=== PATIENT | male | born 1995 | race Caucasian/White ===

== ENCOUNTER 2016-07-12 23:00 | Emergency (ER) | payer OTHER ==
[~2016-07-12] VITALS: Ht 177.8 cm; Wt 81.8 kg
[~2016-07-12 23:00] MED LIST: FLUO40CA PO; LISD40CA PO
[2016-07-12 23:06] VITALS: BP 137/88; PULSE 109; RESP 18; O2SAT 96
[2016-07-12] MEDS ORDERED: RISP1TAB3 PO (23:43)
[2016-07-12] MEDS ORDERED: FLUO20CA25 PO (23:43)
[2016-07-12] MEDS ORDERED: BUPR150T12 PO (23:43)
[2016-07-12] MEDS ORDERED: LISD70CA2 PO (23:43)
--- NOTE | 2016-07-12 23:48 | ED.REPORT ---
HPI-Abd Pain F 2 and Over Date of Service Jul 12, 2016 ED Provider: Parveen Yates MD Nursing Notes Stated Complaint: PSYCHIATRIC Chief Complaint: Psychiatric Complaint Nursing Notes Reviewed: Yes Allergies: Coded Allergies: Sulfa (Sulfonamide Antibiotics) (Verified Allergy, Unknown, 07/12/16) amoxicillin (Verified Allergy, Unknown, 07/12/16) clavulanic acid (Verified Allergy, Unknown, 07/12/16) peanut (Verified Allergy, Unknown, 07/12/16) shellfish derived (Verified Allergy, Unknown, 02/25/15) Uncoded Allergies: TREE NUTS (Allergy, Unknown, 02/25/15) Scheduled Bupropion ER (Bupropion ER) 150 Mg Tablet.er 150 MG PO BID Fluoxetine (Fluoxetine) 40 Mg Capsule 40 MG PO DAILY Fluoxetine (Fluoxetine) 20 Mg Capsule 80 MG PO DAILY Lisdexamfetamine Dimesylate (Vyvanse) 40 Mg Capsule 40 MG PO DAILY Lisdexamfetamine Dimesylate (Vyvanse) 70 Mg Capsule 70 MG PO DAILY Risperidone (Risperidone) 1 Mg Tablet 1 MG PO BID General Time Seen by MD: 23:15 Past Medical History Smoking History Unknown if Ever Smoker Physical Exam Initial Vital Signs Vital Signs (First) Date Time Temp Pulse Resp B/P Pulse Ox O2 Delivery O2 Flow Rate FiO2 07/12/16 23:06 36.5 109 18 137/88 96 Room Air Interpretation & Diagnostics Lab Results Interpretation Test 07/12/16 23:45 Discharge & Departure Referrals: Ramya Scott MD (PCP) Scribe Attestation Portions of this note were transcribed by Huyen Cuadra. I, Dr. Yates, personally performed the history, physical exam and medical decision-making; I reviewed and confirmed the accuracy of the information in the transcribed note. Signed by: Kera Barker, 07/12/2016 2200 Ramya Scott MD, Howard L MD Jul 12, 2016 23:48 Huyen Cuadra Jul 12, 2016 23:56 Parveen Yates MD Jul 12, 2016 23:48 Huyen Cuadra Jul 12, 2016 23:56
--- NOTE | 2016-07-12 23:56 | ED.REPORT ---
HPI-Psychiatric Illness Date of Service Jul 12, 2016 ED Provider: Parveen Yates MD Patient is a 21 year old male with a history of psychiatric disorder on Risperidone, depression and ADHD on Vyvanse who is brought to the ED by his mother after he developed command hallucinations telling him to commit suicide over the past few months, worse for the past few days. While his mother was driving him to the ED, the patient tried to open the car door and jump out of the car. The patient admits that he is still suicidal on arrival to the ED. He states that the voices are "unbearable", telling him that he is "worthless and should ". He admits to "wanting to stab my heart" yesterday and states that he tried to hang himself 2 months ago. His mother was not aware of the patient previously trying to commit suicide. The patient admits to taking all of his psychiatric medications as prescribed. He denies alcohol or illicit drug use. Nursing Notes Stated Complaint: PSYCHIATRIC Chief Complaint: Psychiatric Complaint Nursing Notes Reviewed: Yes Allergies: Coded Allergies: Sulfa (Sulfonamide Antibiotics) (Verified Allergy, Unknown, 07/12/16) amoxicillin (Verified Allergy, Unknown, 07/12/16) clavulanic acid (Verified Allergy, Unknown, 07/12/16) peanut (Verified Allergy, Unknown, 07/12/16) shellfish derived (Verified Allergy, Unknown, 02/25/15) Uncoded Allergies: TREE NUTS (Allergy, Unknown, 02/25/15) Scheduled Bupropion ER (Bupropion ER) 150 Mg Tablet.er 150 MG PO BID Fluoxetine (Fluoxetine) 40 Mg Capsule 40 MG PO DAILY Fluoxetine (Fluoxetine) 20 Mg Capsule 80 MG PO DAILY Lisdexamfetamine Dimesylate (Vyvanse) 40 Mg Capsule 40 MG PO DAILY Lisdexamfetamine Dimesylate (Vyvanse) 70 Mg Capsule 70 MG PO DAILY Risperidone (Risperidone) 1 Mg Tablet 2 MG PO HS General Time Seen by MD: 23:15 Chief Complaint Depressed, Suicidal ideation Hx Obtained From: Patient Risk-Psychiatric Illness Suicide Risk Stratification RF Statements: Risk factors reviewed Past Medical History Past Medical History Psychiatric disorder on Risperidone Depression ADHD Past Surgical History Reports: Tonsillectomy Smoking History Unknown if Ever Smoker Social History Other Social History: Good social support, Local resident Ambulatory Status Independent Review of Systems Constitutional: Denies: Chills, Fever Psychiatric: Reports: Depression, Hallucinations, auditory, Suicidal ideation Complete sys rev & neg: except as marked. Physical Exam Initial Vital Signs Vital Signs (First) Date Time Temp Pulse Resp B/P Pulse Ox O2 Delivery O2 Flow Rate FiO2 07/12/16 23:06 36.5 109 18 137/88 96 Room Air Initial VS: Reviewed, Vital signs abnormal Head / Eyes: Atraumatic, Normocephalic, PERRL ENT: Conjunctiva normal, No scleral icterus Neck: Supple, Full range of motion Abdomen / GI: Soft, Non-tender Extremities: Vascular intact, Neuro intact Skin: Warm, Dry, No cyanosis General/Constitutional: Awake, Alert, Well hydrated Neurologic: Oriented X3, Speech NL, No motor deficits, No sensory deficits Psychiatric: Affect NL Abnormal Mood/Affect: Positive: Depressed, Negative: Flat affect (appears animated while speaking) Abnormal Thinking / Perception: Positive: Suicidal, no plan does not appear to be responding to hallucinations, but states that he is hearing negative voices Respiratory / Chest: Breath sounds NL, Breath sounds = bilat, No respiratory distress, No rales, No rhonchi, No wheezing Cardiovascular: Regular rhythm, Heart sounds NL, No murmurs Heart Rate / Rhythm: Positive: Tachycardia (mild) Interpretation & Diagnostics Interpretation & Diagnostics: Urine Drug Screen: Positive for TCAs and Amphetamines (on Vyvanse). All else negative. Breathalyzer: 0.00 Lab Results Interpretation Result Diagram: 07/13/16 0013 07/13/16 0013 Test 07/12/16 23:45 07/13/16 00:13 Hold Urine Received (Received) White Blood Count 8.5th/mm3 (3.8-10.1) Red Blood Count 4.92mil/mm3 (4.40-5.80) Hemoglobin 14.5g/dL (13.8-17.2) Hematocrit 42.0% (41.0-50.0) Mean Corpuscular Volume 85.4fL (81-100) Mean Corpuscular Hemoglobin 29.5pg (27.0-35.0) Mean Corpuscular Hemoglobin Concent 34.5% (32.0-37.0) Red Cell Distribution Width 12.4% (12.3-15.4) Platelet Count 250bil/L (150-400) Neutrophils (%) (Auto) 58.9% (40-74) Lymphocytes (%) (Auto) 21.9% (14-46) Monocytes (%) (Auto) 10.6% (4-12) Eosinophils (%) (Auto) 8.2% (0-5) Basophils (%) (Auto) 0.2% (0-3) Sodium Level 139mEq/L (134-144) Potassium Level 3.8mEq/L (3.5-5.2) Chloride Level 101mEq/L (97-108) Carbon Dioxide Level 26mmol/L (18-29) Blood Urea Nitrogen 15mg/dL (6-20) Creatinine 0.72mg/dL (0.76-1.27) Estimat Glomerular Filtration Rate 145mL/min (>59) Glucose Level 92mg/dL (60-99) Calcium Level 9.3mg/dL (8.5-10.1) Total Bilirubin 0.3mg/dL (0.0-1.2) Aspartate Amino Transf (AST/SGOT) 13U/L (0-50) Alanine Aminotransferase (ALT/SGPT) 15U/L (0-44) Alkaline Phosphatase 47U/L (25-150) Total Protein 7.4g/dL (6.4-8.4) Albumin 4.8g/dL (3.4-5.0) Thyroid Stimulating Hormone (TSH) 3.350uIU/mL (0.450-4.500) Hold Dumont Top Tube Received (Received) Lab values outside NL range: no clinical significance. Re-Eval/Medical Decision Med Decision/Clinical Course 21-year-old male who has had escalating voices and suicidal ideation reflecting a way to escape these voices. He is on, among other things risperidone 2 mg twice a day and states that he has been taking his medicines. He has been doing his outpatient follow-up. There is some disagreement between the patient and his mother about historical facts. He apparently talked about various methods of suicide and the last couple of weeks. Tonight he tried to jump out of the car while they were enroute here. Because of this behavior and ongoing expression of suicidal ideation and ongoing voices, DCR evaluation was requested and done. The DCR did not feel that he met EMILY criteria. We will increase his risperidone 2 mg in morning, add a 1 mg dose around 2 PM where he states his symptoms are the worst and 2 mg at bedtime. He is being discharged home with his mother who is in agreement with the plan. He has an appointment scheduled in 2 days with [facility]. Source of Hx: Old records Re-Evaluation/Progress : Time of Eval: 03:33 Patient Status: Condition improved Re-Evaluation/Progress Note: Patient and his mother understand and agree with the plan to be discharged home. His risperidone dose will be increased in the afternoon. Discharge instructions and follow-up discussed. All questions were addressed. Return to the ED warnings given. Consultation #1: Call Returned at: 01:05 Note: Spoke with the [facility] about the patient's case. They believe that the patient is voluntary and states that they do not want dispatch a DCR. Discussed this with extensively with the [facility], but they state that the patient will need to be evaluated by the [employer] TECHNICIAN in the morning. Consultation #2: Call Returned at: 03:22 Note: Spoke with the DCR, who has evaluated the patient. Patient stated that he did not have a rope to hang himself and he did not put the rope around his neck. He also stated that he did not try to jump out of the car, but his mother is insistent that he did. She reports having to hold the door closed so that he would not jump. DCR has set the patient up with an urgent follow-up with [facility]. DCR reports that the patient's auditory hallucinations mostly happen in the afternoon, which is when his risperidone dose wears off. DCR asks for the patient's risperidone to be increased to a dose at 2pm in the afternoon. Counseled Regarding: Diagnosis, Lab results, Need for follow-up, When/why to return to ED Discharge & Departure Impression: Primary Impression: Suicidal ideations Additional Impression: Auditory hallucinations )( Condition at Discharge: No danger to self, No danger to others, No suicidal ideation, No homicidal ideation Disposition: Home Discharge Condition All VS Reviewed: Yes Condition: Stable Patient Instructions: Suicide Prevention Through Young Adulthood (ED) Additional Instructions: Recommend that you increase your risperidone to 2 mg in morning, 1 mg at around 2 PM and 2 mg in the evening. Keep your appointment as scheduled with [facility] provider on Pam. Return to the emergency room or call the crisis line if things worsen over the weekend. Referrals: Ramya Scott MD (PCP) Scribe Attestation Portions of this note were transcribed by Huyen Cuadra. I, Dr. Yates, personally performed the history, physical exam and medical decision-making; I reviewed and confirmed the accuracy of the information in the transcribed note. Signed by: Kera Barker, 07/13/2016 0336 copies to: Ramya Scott MD, Howard L MD Jul 12, 2016 23:56 Huyen Cuadra Jul 13, 2016 00:40
[2016-07-13 00:28] LABS: BASOPHILS % (AUTO) 0.2 % (0-3); EOSINOPHILS % (AUTO) 8.2 % (0-5); MONOCYTES % (AUTO) 10.6 % (4-12); Mean Corpuscular Hemoglobin 29.5 pg (27.0-35.0); Mean Corpuscular Volume 85.4 fL (81-100); NEUTROPHILS % (AUTO) 58.9 % (40-74); Platelet Count 250 bil/L (150-400)
[2016-07-13] MEDS ORDERED: risperiDONE 1 mg Tablet PO ONE ×2 (01:00→01:25)
[2016-07-13 03:48] VITALS: BP 128/72; PULSE 99; RESP 16; O2SAT 98
== END 2016-07-13 03:51 | disposition home or self-care (01) ==
LOC: SED 23:00
DX: R45.851 Suicidal ideations (principal); R44.0 Auditory hallucinations; F90.9 Attention-deficit hyperactivity disorder, unspecified type; Z88.2 Allergy status to sulfonamides; Z88.1 Allergy status to other antibiotic agents; Z88.8 Allergy status to other drugs, medicaments and biological substances; Z91.013 Allergy to seafood; Z79.899 Other long term (current) drug therapy

== ENCOUNTER 2016-11-01 18:44 | Emergency (ER) | payer OTHER ==
[~2016-11-01] VITALS: Ht 177.8 cm; Wt 88.6 kg
[~2016-11-01 18:44] MED LIST changes: +BUPR150T12 PO; +FLUO20CA25 PO; +LISD70CA2 PO; +RISP1TAB3 PO
[2016-11-01 18:49] VITALS: BP 141/90; PULSE 111; RESP 1; O2SAT 98
--- NOTE | 2016-11-01 20:44 | ED.REPORT ---
HPI-Psychiatric Illness Date of Service November 01, 2016 ED Provider: Doc,Ed MD The patient is a 21 year old male with history of depression, ADHD, and schizophrenia, who was brought to the emergency department by his mother for increased visual hallucinations that began this afternoon. The patient is unable to describe his symptoms. He is feeling better at this time. He denies suicidal or homicidal ideation. He denies any physical complaints. His mother is requesting to have some kind of anxiety medication to use as needed for when his symptoms become more severe. Nursing Notes Stated Complaint: MENTAL HEALTH Chief Complaint: Psychiatric Complaint Nursing Notes Reviewed: Yes Allergies: Coded Allergies: Sulfa (Sulfonamide Antibiotics) (Verified Allergy, Unknown, 11/01/16) amoxicillin (Verified Allergy, Unknown, 11/01/16) clavulanic acid (Verified Allergy, Unknown, 11/01/16) peanut (Verified Allergy, Unknown, 11/01/16) shellfish derived (Verified Allergy, Unknown, 11/01/16) Uncoded Allergies: TREE NUTS (Allergy, Unknown, 02/25/15) Scheduled Bupropion ER (Bupropion ER) 150 Mg Tablet.er 150 MG PO BID Fluoxetine (Fluoxetine) 40 Mg Capsule 40 MG PO DAILY Fluoxetine (Fluoxetine) 20 Mg Capsule 80 MG PO DAILY Lisdexamfetamine Dimesylate (Vyvanse) 40 Mg Capsule 40 MG PO DAILY Lisdexamfetamine Dimesylate (Vyvanse) 70 Mg Capsule 70 MG PO DAILY Risperidone (Risperidone) 1 Mg Tablet 2 MG PO HS Scheduled PRN hydrOXYzine Hcl (HydrOXYzine Hcl) 25 Mg Tablet 25 MG PO TID PRN PRN For Anxiety General Time Seen by MD: 20:43 Chief Complaint Hallucinations, auditory Hx Obtained From: Patient, Other family... Arrived By: Walk-in Onset Occurred: 5 - 8 hours ago Symptom Duration: 1 - 4 hours Progression Since Onset: Gradually improving Severity: Current: No pain currently Severity: Maximum: No pain Recent Healthcare: No recent hospitalization Similar Sx Previous: Yes Risk-Psychiatric Illness Suicide Risk Stratification RF Statements: Risk factors reviewed Past Medical History Past Medical History Schizophrenia Depression ADHD Past Surgical History Reports: Tonsillectomy Family History Noncontributory Smoking History Unknown if Ever Smoker Social History Other Social History: Good social support, Lives with parents, Local resident Ambulatory Status Independent Review of Systems Constitutional: Denies: Chills, Fever Respiratory: Denies: Non-productive cough, Shortness of breath Cardiovascular: Denies: Chest pain GI: Denies: Abdominal pain, Diarrhea, Nausea, Vomiting Skin: Denies Rash Neurologic: Denies: Headache Psychiatric: Reports: Change mental status, Hallucinations, auditory, Unable to control self, Denies: Homicidal ideation, Suicidal ideation Complete sys rev & neg: except as marked. Physical Exam Initial Vital Signs Vital Signs (First) Date Time Temp Pulse Resp B/P Pulse Ox O2 Delivery O2 Flow Rate FiO2 11/01/16 18:49 36.6 111 1 141/90 98 Room Air Initial VS: Reviewed, Vital signs abnormal Head / Eyes: Atraumatic, Normocephalic, PERRL ENT: Mucous membranes moist, Conjunctiva normal, No scleral icterus Neck: Supple, Non-tender, Full range of motion Respiratory: Breath sounds normal, Clear to auscultation, No respiratory distress Cardiovascular: Regular rate & rhythm, Heart sounds normal, Intact distal pulses Abdomen / GI: Soft, Non-tender, No guarding, No rebound, No distention Lymphatic: No lymphadenopathy Extremities: Vascular intact, Neuro intact, No swelling, No tenderness Skin: Warm, Dry, No cyanosis General/Constitutional: Awake, Alert, Well appearing Neurologic: Oriented X3, Speech NL, No motor deficits, No sensory deficits Psychiatric: Affect NL, Mood NL, Not suicidal, Not homicidal, Cognitive function NL, Judgment/insight NL, Thought content NL Poor eye contact Interpretation & Diagnostics Lab Results Interpretation Test 11/01/16 21:35 Hold Urine Received (Received) Re-Eval/Medical Decision Med Decision/Clinical Course The patient presents as part of his care plan he is feeling overwhelmed. He was never suicidal or homicidal, although he says he wants to hurt his father over his father's to far away for it to be realistic and the patient is unable to drive. His symptoms are more consistent with anxiety and he wished to have some as needed medication. Source of Hx: Old records, Family Re-Evaluation/Progress : Time of Eval: 20:55 Re-Evaluation/Progress Note: Discussed plan for discharge. All questions were addressed. Counseled Regarding: Diagnosis, Need for follow-up, When/why to return to ED Discharge & Departure Impression: Primary Impression: Anxiety )( Condition at Discharge: No danger to self, No danger to others, No suicidal ideation, No homicidal ideation Disposition: Home Discharge Condition All VS Reviewed: Yes Condition: Stable Additional Instructions: Thank you for entrusting us with your care today. I am glad you are feeling better. Continue to take your normal medication as prescribed. Use the hydroxyzine as needed for worsening anxiety. Followup with your regular doctor next week for re-evaluation. Seek care for any new or concerning symptoms. Referrals: Ramya Scott MD (PCP) Scribe Attestation Portions of this note were transcribed by Florina Thapa. I, Dr. Schwartz personally performed the history, physical exam and medical decision-making; I reviewed and confirmed the accuracy of the information in the transcribed note. Signed by: Kera Painting, 11/01/2016 at 2115. copies to: Ramya Scott MD, Jena M MD November 01, 2016 20:44 Florina Thapa November 01, 2016 20:57
[2016-11-01] MEDS ORDERED: HYDR-656 PO (20:59)
[2016-11-01 21:19] VITALS: BP 129/82; PULSE 103; RESP 18; O2SAT 97
== END 2016-11-01 21:18 | disposition home or self-care (01) ==
LOC: SED 18:44
DX: F41.9 Anxiety disorder, unspecified (principal); F20.9 Schizophrenia, unspecified; F32.9 Major depressive disorder, single episode, unspecified; F90.9 Attention-deficit hyperactivity disorder, unspecified type; Z88.1 Allergy status to other antibiotic agents; Z88.2 Allergy status to sulfonamides; Z88.8 Allergy status to other drugs, medicaments and biological substances; Z91.010 Allergy to peanuts; Z91.013 Allergy to seafood